=== PATIENT | male | born 1950 | race Caucasian/White ===

== ENCOUNTER → 2020-03-28 | Outpatient (CLI) | payer MEDICARE ==
--- NOTE | 2020-03-28 14:57 | 2DMMODE ---
[place] [address] 2 D/M-MODE ECHOCARDIOGRAM Name: REEMAKELVIN Shruthi Room: [facility]#: [id number] Admission: 03/28/20 Attend Phys: Ruddy Prince, Discharge: Date of : 52 Date of Service: 03/28/20 1455 Report #: [id number] THIS REPORT FOR: cc: Ruddy Prince John E. DO Liston, Michael J. MD [facility] ~ APPROVED REPORT Study performed: 03/28/2020 11:35:02 EXAM: Comprehensive 2D, Doppler, and color-flow Echocardiogram Patient Location: Out-Patient BSA: 2.22 HR: 68 bpm BP: 142/82 mmHg Other Information Study Quality: Good Indications Elevated BNP 2D Dimensions IVSd: 10.53 (7-11mm) LVOT Diam: 20.82 (18-24mm) LVDd: 48.91 mm PWd: 11.44 (7-11mm) Ascending Ao: 29.04 (22-36mm) LVDs: 26.44 (25-40mm) Aortic Root: 26.69 mm Volumes Left Atrial Volume (Systole) LA ESV Index: 21.30 mL/m2 Aortic Valve AoV Peak Manny.: 1.50 m/s AO Peak Gr.: 9.04 mmHg LVOT Max P.12 mmHg AO Mean Gr.: 5.54 mmHg LVOT Mean P.94 mmHg LVOT Max V: 1.43 m/s AO V2 VTI: 30.68 cm LVOT Mean V: 0.91 m/s EMMA (VTI): 3.64 cm2 LVOT V1 VTI: 32.82 cm Mitral Valve E/A Ratio: 1.74 [place] [address] 2 D/M-MODE ECHOCARDIOGRAM Name: KELVIN BENAVIDEZ Room: [facility]#: [id number] Admission: 03/28/20 Attend Phys: Ruddy Prince, Discharge: Date of : 52 Date of Service: 03/28/20 1455 Report #: [id number] MV Decel. Time: 219.63 ms MV E Max Manny.: 1.20 m/s MV PHT: 63.69 ms MVA (PHT): 3.45 cm2 TDI E/Lateral E': 9.23 E/Medial E': 15.00 Medial E' Manny.: 0.08 m/s Lateral E' Manny.: 0.13 m/s Pulmonary Valve PV Peak Manny.: 1.08 m/s PV Peak Gr.: 4.71 mmHg Tricuspid Valve RAP Estimate: 5.00 mmHg TR Peak Gr.: 26.10 mmHg RVSP: 31.10 mmHg PA Pressure: 31.10 mmHg Left Ventricle The left ventricle is normal size. There is normal LV segmental wall motion. There is normal left ventricular wall thickness. Left ventricular systolic function is normal. LVEF is 65-70%. Transmitral Doppler flow pattern suggests impaired LV relaxation. Right Ventricle The right ventricle is normal size. The right ventricular systolic function is normal. Atria The left atrium size is normal. The right atrium size is normal. Aortic Valve Aortic valve is mildly calcified. No aortic regurgitation is present. There is no aortic valvular stenosis. Mitral Valve Mild mitral annular calcification. There is no mitral valve regurgitation noted. No evidence of mitral valve stenosis. Tricuspid Valve The tricuspid valve is normal in structure. Mild tricuspid regurgitation. The RVSP is 30-35 mmHg. Pulmonic Valve The pulmonary valve is normal in structure. [place] [address] 2 D/M-MODE ECHOCARDIOGRAM Name: KELVIN BENAVIDEZ Room: [facility]#: [id number] Admission: 03/28/20 Attend Phys: Ruddy Prince, Discharge: Date of : 52 Date of Service: 03/28/20 1455 Report #: [id number] valvular regurgitation. Great Vessels The aortic root is normal in size. IVC is normal in size and collapses >50% with inspiration. Pericardium There is no pericardial effusion. <Conclusion> The left ventricle is normal size. There is normal left ventricular wall thickness. Left ventricular systolic function is normal. LVEF is 65-70%. Transmitral Doppler flow pattern suggests impaired LV relaxation. Aortic valve is mildly calcified. There is no aortic valvular stenosis. Mild mitral annular calcification. Mild tricuspid regurgitation. The RVSP is 30-35 mmHg. IVC is normal in size and collapses >50% with inspiration. <ELECTRONICALLY SIGNED> By: Tee Fregoso MD, FACC 03/28/20 1455 1455 1455 Tee Fregoso MD, FACC /INF
== END ==
LOC: M.CRD 11:23
DX: I08.3 Combined rheumatic disorders of mitral, aortic and tricuspid valves (principal); R79.89 Other specified abnormal findings of blood chemistry